=== PATIENT | male | born 1945 | race Caucasian/White ===

== ENCOUNTER 2016-03-11 12:22 | Inpatient (IN) | payer BC ==
[~2016-03-11] VITALS: Ht 190.5 cm; Wt 119.9 kg
[~2016-03-11 12:22] MED LIST: ASPIRIN325 MG PO; COUMADIN10 MG PO; COUMADIN5 MG PO; COUMADIN7.5 MG PO; DOCUSATE SODIU100 MG PO; ENALAPRIL MALE2.5 MG PO; ENDOCET 5-3251 EACH PO; LIPITOR40 MG PO; METOPROLOL TART25 MG PO; PLAVIX75 MG PO; SENNA PLUS TAB1 EACH PO
[2016-03-14] MEDS ORDERED: CLOPIDOGREL75 MG PO (11:48)
[2016-03-14] MEDS ORDERED: TRAMADOL HCL50 MG PO (11:48)
[2016-03-14] MEDS ORDERED: THERAGRAN1 TABLET PO (11:48)
[2016-03-14] MEDS ORDERED: ASPIR-LOW81 MG PO (11:48)
[2016-03-14] MEDS ORDERED: NITROSTAT0.4 MG SL (11:48)
[2016-03-14 14:23] VITALS: BP 125/79
[2016-03-14] MEDS ORDERED: TRAZODONE HCL50 MG PO (14:46)
[2016-03-14 14:54] VITALS: BP 125/79
[2016-03-15 00:01] VITALS: BP 100/58
[2016-03-15 05:26] VITALS: BP 91/57
[2016-03-15 14:13] VITALS: BP 110/58
[2016-03-15 14:58] VITALS: BP 97/55
[2016-03-15 15:54] LABS: INTER. NORMALIZED RATIO 1.8; PROTHROMBIN TIME 18.7 (9.2-11.2)
[2016-03-15 16:38] VITALS: BP 100/55
[2016-03-16 04:58] LABS: INTER. NORMALIZED RATIO 1.7
[2016-03-16 05:07] LABS: CHLORIDE 109 mEq/L (99-109); POTASSIUM 4.2 mEq/L (3.7-5.4); SODIUM 140 mEq/L (136-147)
[2016-03-16 05:09] LABS: GLUCOSE 115 mg/dL (70-99)
[2016-03-16 05:10] LABS: ANION GAP 9 MEQ/L (2-14)
[2016-03-16 05:13] LABS: GFR ESTIMATE (CALCULATED) > 59 mL/min/
[2016-03-16 05:14] LABS: UREA NITROGEN (BUN) 12 mg/dL (9-23)
[2016-03-16 05:37] VITALS: BP 99/57
[2016-03-16 08:48] VITALS: BP 100/60
[2016-03-16 15:18] VITALS: BP 129/70
[2016-03-17 04:00] VITALS: BP 134/62
[2016-03-17 05:38] LABS: INTER. NORMALIZED RATIO 1.8; PROTHROMBIN TIME 18.4 (9.2-11.2)
[2016-03-17 15:24] VITALS: BP 133/90
[2016-03-18 04:00] VITALS: BP 104/66
[2016-03-18 06:37] LABS: PROTHROMBIN TIME 20.6 (9.2-11.2)
[2016-03-18 15:31] VITALS: BP 104/58
[2016-03-19 04:11] VITALS: BP 100/60
[2016-03-19 07:11] LABS: INTER. NORMALIZED RATIO 1.8; PROTHROMBIN TIME 19.1 (9.2-11.2)
[2016-03-19 14:39] VITALS: BP 108/51
[2016-03-20 05:10] LABS: PROTHROMBIN TIME 20.5 (9.2-11.2)
[2016-03-20 05:37] VITALS: BP 88/52
[2016-03-20 15:35] VITALS: BP 145/60
[2016-03-20 20:32] VITALS: BP 109/59
[2016-03-21 05:27] LABS: INTER. NORMALIZED RATIO 2.4; PROTHROMBIN TIME 25.4 (9.2-11.2)
[2016-03-21 05:35] VITALS: BP 95/60
[2016-03-21 14:59] VITALS: BP 117/70
[2016-03-21 20:38] VITALS: BP 114/72
[2016-03-22 05:49] VITALS: BP 90/66
[2016-03-22 06:24] LABS: INTER. NORMALIZED RATIO 2.1; PROTHROMBIN TIME 22.4 (9.2-11.2)
[2016-03-22] MEDS ORDERED: ENDOCET 5-3251 EACH PO (11:13)
[2016-03-22] MEDS ORDERED: ENALAPRIL MALEAT5 MG PO (11:13)
[2016-03-22] MEDS ORDERED: TRAMADOL HCL50 MG PO (11:13)
[2016-03-22] MEDS ORDERED: NITROSTAT0.4 MG SL (11:13)
[2016-03-22] MEDS ORDERED: CLOPIDOGREL75 MG PO (11:13)
[2016-03-22] MEDS ORDERED: LOPRESSOR25 MG PO (11:13)
[2016-03-22] MEDS ORDERED: TRAZODONE HCL50 MG PO (11:13)
[2016-03-22 15:00] VITALS: BP 130/61
== END 2016-03-22 17:16 | disposition home health service (06) | DRG 559 ==
LOC: 3WEST 12:22
PROVIDERS: Physician Assistant Medical; Psychiatry & Neurology Neurology
PROC: F07M0ZZ Range of Motion and Joint Mobility Treatment of Musculoskeletal System - Whole Body (ICD-10-PCS; principal; 2016-03-14)
DX: S72.012D Unspecified intracapsular fracture of left femur, subsequent encounter for closed fracture with routine healing (principal); I21.3 ST elevation (STEMI) myocardial infarction of unspecified site; W18.30XD Fall on same level, unspecified, subsequent encounter; Z96.642 Presence of left artificial hip joint; I48.2 Chronic atrial fibrillation; I25.2 Old myocardial infarction; I10 Essential (primary) hypertension; I25.10 Atherosclerotic heart disease of native coronary artery without angina pectoris; E78.5 Hyperlipidemia, unspecified; R26.2 Difficulty in walking, not elsewhere classified; I95.9 Hypotension, unspecified; Z79.01 Long term (current) use of anticoagulants; I34.0 Nonrheumatic mitral (valve) insufficiency; I27.2 Other secondary pulmonary hypertension; M85.68 Other cyst of bone, other site; Z95.2 Presence of prosthetic heart valve
CPT/HCPCS: 73000; 80048; 85610; 93306; 97110 GO; 97530 GP